=== PATIENT | male | born 1970 | race African-American/Black ===

== ENCOUNTER 2017-03-23 09:56 | Observation (INO) | payer OTHER ==
[~2017-03-23] VITALS: Ht 188 cm; Wt 72.8 kg
--- NOTE | ~2017-03-23 | DS ---
Unit #: [id number] #: [id number] Patient: SARA RODRIGUEZ [id number] [address] [address] [id number] I MR#: [id number] NAME: SARA RODRIGUEZ ROOM: 325 Age: 46 Sex: M Admission Date: 03/23/2017 : 1970 Discharge Date: 03/24/2017 Attending Physician: Benny Boateng M.D. Primary Care Physician: Primary Care Physician No DISCHARGE SUMMARY PRIMARY DIAGNOSIS Hypothermia. SECONDARY DIAGNOSES Severe total calorie malnutrition; alcoholic transaminitis; ongoing alcohol abuse; hypertension; dyslipidemia; diabetes mellitus type 2, mild; history of pyloric ulcer disease; tobacco abuse; history of cocaine abuse; ongoing marijuana abuse. HOSPITAL COURSE Mr. hCuy Rodriguez was placed in observation status for some hypothermia and was started on antibiotics pending workup for possible sepsis and infection. After monitoring the patient for over 24 hours since he arrived in the emergency room, it does not appear that there is any such infection present. The patient clinically was markedly improved. He had been off any sort of heating blanket for 18 hours and had been going down stairs multiple times to smoke. He reports feeling back to 100%. In my discussions with him, he reports that he had not eaten anything for 3 days prior to presentation, and so we discussed the importance of maintaining a regular diet, especially considering his long history of alcohol abuse and likely his diminished gluconeogenesis from some mildly diminished liver function. At this time, I do not see any strong indications to change any of his medications. He does not appear to be ready to stop alcohol and does not feel he has a problem with alcohol "anymore." He does seem to minimize the amount of alcohol he is taking in as he reports drinking only 3 beers each night to go to bed and none otherwise; however, his elevated liver enzymes of AST of 338 and ALT of 191 at admission that were trending down as well as his alcohol level of 181 at presentation are suggestive of higher intake. DISCHARGE DISPOSITION To home. DISCHARGE STATUS Stable. DISCHARGE ACTIVITY Ad abril. DISCHARGE DIET At least 2 meals a day and I am going to recommend 2000 mg sodium restriction, but no diabetic restriction at this time. Unit #: [id number] #: [id number] Patient: SARA RODRIGUEZ DISCHARGE FOLLOWUP With his PCP in 1 to 2 weeks. DISCHARGE MEDICATIONS Amlodipine 5 mg p.o. daily, Fenofibrate 145 mg p.o. daily, ranitidine 150 mg p.o. b.i.d., Lortab 7.5 one tablet p.o. t.i.d. Dictated by... Jose Rivera/radha TD: 03/26/2017 08:28 JOB #: [id number] DISCHARGE SUMMARY Page 1 of 1 X Benny Boateng MD X DISCHARGE SUMMARY
--- NOTE | ~2017-03-23 | HP ---
Unit #: [id number] #: [id number] Patient: SARA RODRIGUEZ [id number] [facility]. [place], [place] [address] [id number] MR#: [id number] NAME: SARA RODRIGUEZ ROOM: Age: 46 Sex: M Admission Date: 03/23/2017 : 1970 Attending Physician: Anahi Barr M.D. Primary Care Physician: No Primary Care Physician HISTORY AND PHYSICAL CHIEF COMPLAINT Dizzy, cold. HISTORY OF PRESENT ILLNESS The patient is a 45-year-old male with a past medical history of alcohol abuse, hypertension, hyperlipidemia, diabetes, peptic ulcer disease who presented to the emergency department for evaluation of the above. The patient states that he was in his usual state of health until this morning when he felt dizzy and cold. He denies any chest pain. He states that he has a nonproductive cough at baseline. He denies any difficulty breathing. He has had decreased appetite. His last bowel movement was today and normal. He states that he has had intermittent crampy abdominal pain for the past several months. He is a daily drinker, with the last drink being on the evening prior to admission. Upon arrival in the emergency department, temperature was 94.5, pulse and blood pressure 86 and 128/88 respectively. Chest x-ray shows nothing acute. Urinalysis was negative. The lactic acid is 4.4. Urine tox screen positive for marijuana. He was given a total of 2.5 L of normal saline in the emergency department, as well as a p.o. Rally pack. He is being admitted to [facility] for evaluation and further treatment. PAST MEDICAL HISTORY 1. Admission to [facility] 08/04/2016 through the 08/05/2016 for acute kidney injury and hyponatremia, as well as urinary tract infection. 2. Hypertension. 3. Hyperlipidemia. 4. Diabetes. PAST SURGICAL HISTORY Right hand surgery. SOCIAL HISTORY The patient lives with his nephew. He is a daily drinker of one to two 24 ounce beers daily. He also has history of cocaine and marijuana use. He works in "transportation." FAMILY HISTORY Notable for his mother having hypertension. His dad is . ALLERGIES Unit #: [id number] #: [id number] Patient: SARA RODRIGUEZ No known allergies. HOME MEDICATIONS Fenofibrate 145 mg daily; Lortab 7.5/325 t.i.d. p.r.n.; amlodipine 5 mg daily; ranitidine 150 mg twice daily. REVIEW OF SYSTEMS A complete review of systems is negative except as indicated in the HPI. The patient does not routinely check his blood sugars. PHYSICAL EXAMINATION VITAL SIGNS: Temperature initially 94.5, most recently 97.4, pulse 86, respirations 16, blood pressure 128/88, oxygen saturation 100% on room air. GENERAL: The patient is an -Gabones[place] male who is awake and alert, ambulating about the emergency department in no acute distress. HEENT: Head is atraumatic. Mucous membranes are moist. NECK: Supple. Tracheal is midline. CARDIOVASCULAR: Regular rate and rhythm. LUNGS: Clear to auscultation bilaterally with no increased work of breathing. ABDOMEN: Soft, nontender with bowel sounds present in all four quadrants. EXTREMITIES: Nontender with no pedal edema. NEUROLOGIC: The patient is awake and alert. He follows commands. PSYCH: Mood and affect are normal. Patient is cooperative. SKIN: Skin of examined areas is warm and dry. DIAGNOSTIC STUDIES CARDIOLOGY STUDIES: EKG shows normal sinus rhythm with a rate of 84 BPM. IMAGING STUDIES: Chest x-ray shows nothing acute. LABORATORY STUDIES: Complete blood count is essentially normal. INR is 0.9. Lactic acid 4.4. Comprehensive metabolic panel notable for a chloride of 95, glucose 126, BUN and creatinine 8 and 0.8 respectively. AST and ALT are 38 and 191 respectively. CK is 103. Magnesium is 2.1, alcohol level is 181. Troponin is less than 0.05. Urine tox screen is positive for marijuana. Urinalysis notable for trace protein, 1+ ketones. ASSESSMENT The patient is a 46-year-old male with: 1. Hypothermia, initial temperature was 94.5, most recently 97.4. 2. Lactic acidosis with an initial lactic acid of 4.4. The patient does have a history of alcohol abuse. Chest x-ray shows nothing acute. Urinalysis is negative. White blood cell count is normal. However, as stated above, the patient was hypothermic. He also is a daily drinker with alcohol level of 181. He possibly aspirated. 3. Alcohol abuse with last drink being yesterday and current alcohol level 181. 4. Transaminitis secondary to alcohol abuse. 5. Hypertension. 6. Hyperlipidemia. 7. Diabetes. 8. Peptic ulcer disease. 9. Tobacco abuse. 10. History of cocaine abuse. PLAN 1. Admit for observation to an intermediate level. Unit #: [id number] #: [id number] Patient: SARA RODRIGUEZ 2. Healthy heart consistent carb diet if passes bedside swallow. 3. Alcohol withdrawal protocol to start now. 4. Blood cultures x2. 5. Sputum culture and sensitivity. 6. Supplemental oxygen. 7. Procalcitonin level. 8. Repeat chest x-ray in the morning. 9. Zosyn for possible aspiration pneumonia pending further workup. 10. Sepsis protocol. 11. Hemoglobin A1c. 12. Low dose sliding scale with Accu-Cheks. 13. Serial cardiac enzymes. 14. Potassium-magnesium protocol. 15. Repeat labs in the morning. 16. SCDs for DVT prophylaxis. 17. Additional workup and consultants based on above. Dictated by Latonya Dela Cruz M.D. MICHAELA/lorena TD: 03/23/2017 15:12 JOB #: [id number] HISTORY AND PHYSICAL Page 1 of 1 X Latonya Dela Cruz MD X HISTORY AND PHYSICAL
--- NOTE | ~2017-03-23 | EKG ---
PATIENT: SARA RODRIGUEZ UNIT #: [id number] Ventricular Rate: 84 BPM Atrial Rate: 84 BPM P-R Interval: 152 ms QRS Duration: 88 ms Q-T Interval: 404 ms QTC Calculation(Bezet): 477 ms P Frankewing: 80 degrees Calculated R Frankewing: 89 degrees Calculated T Frankewing: 70 degrees Diagnosis Line: Normal sinus rhythm Diagnosis Line: Normal ECG Diagnosis Line: When compared with ECG of 03-AUG-2016 22:15, Diagnosis Line: No significant change was found Diagnosis Line: Confirmed by HENRY TAYLOR MD ([id number]) on Diagnosis Line: 03/24/2017 8:01:21 AM INTERPRETING MD: BRANDON CARRIZALES
--- NOTE | ~2017-03-23 | CR63 ---
[facility] A Service of [facility] & [facility] RADIOLOGY TEXT RESULTS PATIENT: SARA RODRIGUEZ LOCATION: [facility] 325-01 : [birth year] UNIT #: [id number] AGE: [address]: Benny Boateng MD SEX: M ORDER DR: [id number] [facility] [address]. [place], [place] [address] [id number] I MR#: [id number] Acc #: [id number] NAME: SARA RODRIGUEZ : 1970 SEX: M STUDY DATE/TIME: 03/24/2017 7:02 UNIT: [address] ROOM: [facility] STUDY DESCRIPTION: CR Chest 2 View Attending Physician: Benny Boateng M.D. Ordering Physician: Latonya Dela Cruz M.D. Primary Care Physician: Primary Care Physician No MEDICAL IMAGING REPORT This report is preliminary unless electronic signature is present EXAM Two-view chest 03/24/2017 HISTORY 46-year-old male with shortness of air and cough for 1 day. Essential hypertension. Diabetes. Smoker. COMPARISON Chest 03/23/2017. FINDINGS Two frontal views and 2 lateral views of the chest were performed. Four total images. The lungs and pleural spaces are clear. No pneumothorax. Heart size and mediastinum are normal. Pulmonary vasculature normal. IMPRESSION No acute cardiopulmonary findings. No change from 03/23/2017. Dictated by... Ata Zazueta M.D. THIS IS AN ELECTRONICALLY VERIFIED REPORT Ata Zazueta M.D. at 03/24/2017 5:01 PM ALLISON/mikayla TD: 03/24/2017 13:56 JOB #: [id number] MEDICAL IMAGING REPORT Page 1 of 1 COPY
--- NOTE | ~2017-03-23 | CR72 ---
[facility] A Service of [facility] & [facility] RADIOLOGY TEXT RESULTS PATIENT: SARA RODRIGUEZ LOCATION: [facility] 325-01 : [birth year] UNIT #: [id number] AGE: [address]: Latonya Dela Cruz MD SEX: M ORDER DR: [id number] [facility] [address] [place], [place] [address] [id number] I MR#: [id number] Acc #: [id number] NAME: SARA RODRIGUEZ : 1970 SEX: M STUDY DATE/TIME: 03/23/2017 10:49 [facility]: [facility] STUDY DESCRIPTION: CR Chest Single View Portable Attending Physician: Latonya Dela Cruz M.D. Ordering Physician: Anahi Barr M.D. Primary Care Physician: No Primary Care Physician MEDICAL IMAGING REPORT This report is preliminary unless electronic signature is present EXAM Frontal chest 03/23/2017 INDICATIONS Hypothermia, weakness, dizziness, cold and weak. Hypertension, tobacco abuse, diabetes. TECHNIQUE Frontal chest compared with 08/03/2016. FINDINGS Cardiac silhouette is unremarkable, the vascularity is normal. The lungs are clear. There are calcified granulomas. No pneumothorax. IMPRESSION 1. Calcified granulomatous changes; otherwise, negative frontal chest. No significant change for technical factors. Dictated by... Judd Greene M.D. THIS IS AN ELECTRONICALLY VERIFIED REPORT Judd Greene M.D. at 03/24/2017 7:48 AM FRANCOISE/henry TD: 03/24/2017 07:34 JOB #: [id number] MEDICAL IMAGING REPORT Page 1 of 1 COPY
[~2017-03-23 09:56] MED LIST: FENOFIBRATE145 M1 PO; GLUCOPHAGE500 M1 PO; HYDROCODONE/APA1 T16 PO; LIPITOR40 MG PO; LISINOPRIL-HCTZ1 T14; OMEPRAZOLE40 M1 PO; OMNICEF300 MG PO; TIZANIDINE HCL4 M1 PO
[2017-03-23 11:16] LABS: BASOPHIL# 0.1 X10e3 (0-0.3); BASOPHIL% 1.8 % (0-2.5); EOSINOPHIL# 0.1 X10e3 (0-0.7); EOSINOPHIL% 2.8 % (0.0-7.0); HEMATOCRIT 46.3 % (38.0-50.0); HEMOGLOBIN 15.6 gm/dL (13.0-16.0); LYMPHOCYTE# 1.5 X10e3 (1.0-3.5); LYMPHOCYTE% 32.3 % (17.0-45.0); MEAN CELL VOLUME 87.9 FL (83-96); MEAN CORPUSCULAR HEMOGLOBIN 29.6 PG (28-34); MEAN CORPUSCULAR HGB CONC 33.6 g/dL (30-36); MEAN PLATELET VOLUME 7.9 FL (6.5-11.5); MONOCYTE# 0.4 X10e3 (0-1.0); MONOCYTE% 7.6 % (3.0-12.0); NEUTROPHIL# 2.6 X10e3 (1.5-7.1); NEUTROPHIL% 55.5 % (40-75); PLATELET COUNT 155 X10e3 (140-420); RED BLOOD COUNT 5.27 X10e (3.90-5.60); RED CELL DISTRIBUTION WIDTH 16.6 % (11.0-15.5); WHITE BLOOD COUNT 4.7 X10e3 (4.0-10.5)
[2017-03-23 11:18] LABS: DIFF IND NO
[2017-03-23 11:41] LABS: INR 0.9; PARTIAL THROMBOPLASTIN TIME 26.6 SECONDS (23.5-31.3); PROTHROMBIN TIME (PATIENT) 10.2 SECONDS (10.0-11.7)
[2017-03-23 11:54] LABS: ALBUMIN SERUM 4.9 g/dL (3.5-5.0); BILIRUBIN, DIRECT 0.4 mg/dL (0.0-0.2); BILIRUBIN,INDIRECT 0.7 mg/dL (0.0-0.9); BILIRUBIN,TOTAL 1.1 mg/dL (0.2-2.0); CALCIUM SERUM 9.4 mg/dL (8.4-10.2); CREATININE SERUM 0.8 mg/dL (0.6-1.4); GLOM FILT RATE Estimated 123.3 mL/min (>60); MAGNESIUM 2.1 mg/dL (1.6-3.0); PHOSPHOROUS 4.1 mg/dL (2.5-4.6); POTASSIUM 4.1 mmol/L (3.5-5.1); PROTEIN TOTAL SERUM 8.3 g/dL (6.0-8.3)
[2017-03-23 12:09] LABS: POC - CKMB <1.0 ng/mL (0.0-7.9); POC - TROPONIN <0.05 ng/mL (<=0.05)
[2017-03-23 12:25] LABS: POC - CKMB <1.0 ng/mL (0.0-7.9); POC - TROPONIN <0.05 ng/mL (<=0.05)
[2017-03-23 12:36] LABS: URINE SOURCE CLEAN CATCH
[2017-03-23 12:43] LABS: URINE APPEARANCE CLEAR; URINE BILIRUBIN NEG (NEG); URINE BLOOD NEG (NEG); URINE COLOR DK YELLOW; URINE GLUCOSE NEG (NEG); URINE KETONE 1+ (NEG); URINE LEUKOCYTE ESTERASE NEG (NEG); URINE NITRATE NEG (NEG); URINE PROTEIN TRACE (NEG); URINE SPECIFIC GRAVITY 1.021 (1.003-1.035)
[2017-03-23 12:52] LABS: AMPHETAMINE NEG (NEG); BARBITURATES NEG (NEG); BENZODIAZEPINES NEG (NEG); COCAINE NEG (NEG); MARIJUANA POS (NEG); OPIATES NEG (NEG); TRICYCLIC ANTIDEPRESSANTS NEG (NEG); U METHADONE NEG (NEG)
[2017-03-23] MEDS ORDERED: LORTAB 7.5-3251 EACH PO (12:59)
[2017-03-23] MEDS ORDERED: AMLODIPINE BESYL5 MG PO (13:00)
[2017-03-23] MEDS ORDERED: RANITIDINE HCL150 M1 PO (13:00)
[2017-03-23 13:01] LABS: CULTURE INDICATED? NO
[2017-03-23 16:57] LABS: MAGNESIUM 2.2 mg/dL (1.6-3.0)
[2017-03-23 21:56] LABS: %MB 0.9 % (0.0-4.0); MB 0.9 ng/ml
[2017-03-24 02:12] LABS: %MB 1.1 % (0.0-4.0); MB 1.2 ng/ml
[2017-03-24 05:45] LABS: HEMATOCRIT 41.7 % (38.0-50.0); HEMOGLOBIN 13.8 gm/dL (13.0-16.0); MEAN CELL VOLUME 87.3 FL (83-96); MEAN CORPUSCULAR HEMOGLOBIN 28.9 PG (28-34); MEAN PLATELET VOLUME 8.4 FL (6.5-11.5); RED BLOOD COUNT 4.78 X10e (3.90-5.60); RED CELL DISTRIBUTION WIDTH 15.9 % (11.0-15.5); WHITE BLOOD COUNT 3.7 X10e3 (4.0-10.5)
[2017-03-24 06:15] LABS: THYROID STIMULATING HORMONE 1.2 uIU/ml (0.34-5.60)
[2017-03-24 06:22] LABS: FREE THYROXIN (T4) 0.7 ng/dL (0.58-1.64)
[2017-03-24 07:24] LABS: ALBUMIN SERUM 4.1 g/dL (3.5-5.0); BILIRUBIN,TOTAL 0.5 mg/dL (0.2-2.0); BUN/CREATININE RATIO 7.14; CALCIUM SERUM 8.7 mg/dL (8.4-10.2); CREATININE SERUM 0.7 mg/dL (0.6-1.4); GLOM FILT RATE Estimated 130.3 mL/min (>60); POTASSIUM 3.4 mmol/L (3.5-5.1); PROTEIN TOTAL SERUM 7.1 g/dL (6.0-8.3)
== END 2017-03-24 17:17 | disposition home or self-care (01) ==
LOC: CED 09:56 → CEDOF 13:45 → C3A PCU 16:40 → CEDOF 16:40 → CED 16:40 → C3A PCU 20:34 → CEDOF 20:34 → C3A PCU 20:34
PROVIDERS: Emergency Medicine; Family Medicine
DX: T68.XXXA Hypothermia, initial encounter (principal); I10 Essential (primary) hypertension; E78.5 Hyperlipidemia, unspecified; E13.10 Other specified diabetes mellitus with ketoacidosis without coma; E43 Unspecified severe protein-calorie malnutrition; F10.10 Alcohol abuse, uncomplicated; R74.0 Nonspecific elevation of levels of transaminase and lactic acid dehydrogenase [LDH]; K27.9 Peptic ulcer, site unspecified, unspecified as acute or chronic, without hemorrhage or perforation; F17.200 Nicotine dependence, unspecified, uncomplicated; Z68.21 Body mass index [BMI] 21.0-21.9, adult; Z79.84 Long term (current) use of oral hypoglycemic drugs; Z79.899 Other long term (current) drug therapy
CPT/HCPCS: 36415; 71010; 71020; 80048; 80053; 80076; 80307; 81003; 82308; 82550; 82553; 82947; 83036; 83605; 83735; 84100; 84439; 84443; 84484; 85025; 85027; 85610; 85730; 86592; 87040; 93005; 94760; 96360; 96361; 96365; 96375; 96376; 99285; G0378; G0480; J2543; J3411; J7042